=== PATIENT | female | born 1995 | race Caucasian/White ===

== ENCOUNTER 2020-07-29 11:11 | Emergency (ER) | payer OTHER ==
--- NOTE | 2020-07-29 11:13 | ERPHSYRPT ---
- History of Present Illness Time Seen by Provider: 07/29/20 11:13 Historian: patient Exam Limitations: no limitations Physician History: This is a 24-year-old white female who is approximately 13 weeks . She has had an ultrasound which confirms that she has a single intrauterine fetus. It was performed approximately 5 weeks ago. Patient states that she has had several week history of bilateral groin and lower quadrant discomfort that feels like a pulling sensation. She is also had a little cramping over her uterus. She has had no fevers. She does have intermittent nausea. She states that she does have some issues on occasion with constipation since she has been . She denies vaginal bleeding. She has had no recent vomiting. She is had no diarrhea. She states she had no fevers. She denies myalgias arthralgias. She has no cough, no chest pain and no shortness of breath. Activities at Onset: none Quality: other (Pulling, tightness bilateral lower quadrants and groin as well as cramping over her uterus) Abdominal Pain Onset Location: RLQ, LLQ, suprapubic Pain Radiation: no radiation Severity of Pain-Max: mild Severity of Pain-Current: mild Modifying Factors: Improves With: nothing Associated Symptoms: denies symptoms Previous symptoms: same symptoms as today Allergies/Adverse Reactions: ziprasidone HCl [From Geodon] Allergy (Mild, Verified 07/29/20 11:37) ziprasidone mesylate [From Geodon] Allergy (Mild, Verified 07/29/20 11:37) Home Medications: Alprazolam 1 mg [Xanax 1 mg] 1 mg PO 07/29/20 [History] Buprenorphine HCl/Naloxone HCl [Suboxone 2 mg-0.5 mg Tablet] 1 each SL 07/29/20 [History] Citalopram Hydrobromide 20 mg* [ceLEXa 20 MG] 20 mg PO DAILY 07/29/20 [History] Clonidine HCl 0.1 mg [Catapres 0.1 MG] 0.1 mg PO 07/29/20 [History] Hydroxyzine HCl 25 mg PO 07/29/20 [History] Hx Tetanus, Diphtheria Vaccination/Date Given: Yes Hx Influenza Vaccination/Date Given: No Hx Pneumococcal Vaccination/Date Given: No Travel Risk - International Travel Have you traveled outside of the country in past 3 weeks: No - Coronavirus Screening Are you exhibiting any of the following symptoms?: No Close contact with a COVID-19 positive Pt in past 14-21 Days: No - Review of Systems Constitutional: No Symptoms Eyes: No Symptoms Ears, Nose, & Throat: No Symptoms Respiratory: No Symptoms Cardiac: No Symptoms Abdominal/Gastrointestinal: Abdominal Pain (Described as a pulling and tightness bilateral lower quadrants and bilateral groins as well as tightness and spasm in over her uterus) Genitourinary Symptoms: No Symptoms Musculoskeletal: No Symptoms Skin: No Symptoms Neurological: No Symptoms Psychological: No Symptoms Endocrine: No Symptoms Hematologic/Lymphatic: No Symptoms Immunological/Allergic: No Symptoms All Other Systems: Reviewed and Negative - Past Medical History Pertinent Past Medical History: No Neurological History: No Pertinent History ENT History: No Pertinent History Cardiac History: No Pertinent History Respiratory History: No Pertinent History Endocrine Medical History: No Pertinent History Musculoskeletal History: No Pertinent History GI Medical History: No Pertinent History History: No Pertinent History Psycho-Social History: Other Female Reproductive Disorders: Other Other Medical History: ovarian cysts - Past Surgical History Past Surgical History: No Neuro Surgical History: No Pertinent History Cardiac: No Pertinent History Respiratory: No Pertinent History Gastrointestinal: No Pertinent History Genitourinary: No Pertinent History Musculoskeletal: No Pertinent History Female Surgical History: No Pertinent History - Social History Smoking Status: Never smoker Exposure to second hand smoke: Yes Drug Use: none Patient Lives Alone: No - Nursing Vital Signs Nursing Vital Signs: Initial Vital Signs Temperature 98.5 F 07/29/20 11:29 Pulse Rate 85 07/29/20 11:29 Respiratory Rate 18 07/29/20 11:29 Blood Pressure 134/85 07/29/20 11:29 O2 Sat by Pulse Oximetry 100 07/29/20 11:29 Pain Scale Pain Intensity 5 - Physical Exam General Appearance: no apparent distress, alert, anxiety Eye Exam: PERRL/EOMI, eyes nml inspection Ears, Nose, Throat Exam: normal ENT inspection, moist mucous membranes Neck Exam: normal inspection, non-tender, supple, full range of motion Respiratory Exam: normal breath sounds, lungs clear, airway intact, No chest tenderness, No respiratory distress Cardiovascular Exam: regular rate/rhythm, normal heart sounds, normal peripheral pulses Gastrointestinal/Abdomen Exam: soft, normal bowel sounds, tenderness, other Pelvic Exam: not done Rectal Exam: not done Back Exam: normal inspection, normal range of motion, No CVA tenderness, No vertebral tenderness Extremity Exam: normal inspection, normal range of motion, pelvis stable Neurologic Exam: alert, oriented x 3, cooperative, outside sales representative insurance II-XII nml as tested, normal mood/affect, nml cerebellar function, nml station & gait, sensation nml Skin Exam: normal color, warm, dry Lymphatic Exam: No adenopathy SpO2 Interpretation: normal O2 Delivery: Room Air - Course Nursing assessment & vital signs reviewed: Yes Ordered Tests: Active Orders 24 hr Category Date Time Status OB FOLLOW UP PER FETUS [US] Stat Exams 07/29/20 13:16 Completed UA W/RFX UR CULTURE Stat Lab 07/29/20 13:29 Ordered Lab/Rad Data: Laboratory Results 07/29/20 Range/Units 12:45 Urinalys Dipstick Clnc MAIN LAB Urine Color Cancelled Urine Appearance Cancelled Urine pH Cancelled Ur Specific [place] Cancelled Urine Protein Cancelled POC Urine Protein Conf NEGATIVE (Negative) Urine Ketones Cancelled Urine Blood Cancelled Urine Nitrite Cancelled Urine Bilirubin Cancelled Urine Urobilinogen Cancelled Ur Leukocyte Esterase Cancelled Urine Leukocytes NEGATIVE (NEGATIVE) Urine WBC (Auto) 0-2 (0-5) /HPF Urine RBC (Auto) NONE (0-2) /HPF U Epithel Cells (Auto) FEW (FEW) /HPF Urine Bacteria (Auto) NONE (NEGATIVE) /HPF Urine RBC NEGATIVE (0-5) [place]/ul U Non-Squamous Epi Cells Cancelled Urine Mucus (Auto) SLIGHT (NEGATIVE) /HPF Ur Culture Indicated? NO Urine Culture Reflexed Cancelled Urine Glucose NEGATIVE (NEGATIVE) mg/dL - Progress Progress: unchanged Progress Note: 07/29/20 13:47 Per office automation technician, no acute abnormalities present. Counseled pt/family regarding: lab results, diagnosis, need for follow-up, rad results - Departure Departure Disposition: Home Clinical Impression: Round ligament pain Condition: Stable Critical Care Time: No Additional Instructions: May use Tylenol for pain control. Follow-up with your command post craftsman for further management.
[2020-07-29 12:50] VITALS: PULSE 76; O2SAT 98
[2020-07-29 12:54] LABS: Appearance CLEAR (CLEAR); Bilirubin NEGATIVE (NEGATIVE); Dipstick done @ ? MAIN LAB; Glucose NEGATIVE (NEGATIVE); Ketones NEGATIVE (NEGATIVE); Nitrite NEGATIVE (NEGATIVE); Protein,Urine Dip NEGATIVE (Negative); RBC NEGATIVE Ery/ul (0-5); Specific Gravity 1.025 (1.005-1.025); Urobilinogen 0.2 mg/dL (0-1)
[2020-07-29 12:57] LABS: Epithelial Cells FEW /HPF (FEW); Mucus SLIGHT /HPF (NEGATIVE); WBC 0-2 /HPF (0-5)
--- NOTE | 2020-07-29 13:29 | XRAY ---
Indication: Pain. Two-dimensional transabdominal early OB ultrasound performed. Comparison: June 19, 2020. Again there is a single viable intrauterine with mean crown-rump length 8.07 cm corresponding to 14 weeks 0 days. heart rate 155 BPM. No abnormal subchorionic fluid. Left and right ovaries not visualized. No suspicious adnexal mass or free fluid. Impression: Again single viable intrauterine measuring 14 weeks 0 days. Normal progression of . No new/acute findings.
[2020-07-29 14:00] VITALS: BP 97/59
== END 2020-07-29 13:59 | disposition home or self-care (01) ==
LOC: ED 11:11
DX: R10.2 Pelvic and perineal pain (principal); O26.891 Other specified pregnancy related conditions, first trimester; Z3A.13 13 weeks gestation of pregnancy
CPT/HCPCS: 76816; 81015; 99283

== ENCOUNTER 2020-08-19 15:51 | Emergency (ER) | payer OTHER ==
--- NOTE | 2020-08-19 16:25 | ERPHSYRPT ---
- History of Present Illness Time Seen by Provider: 08/19/20 16:24 Source: patient Exam Limitations: no limitations Patient Subjective Stated Complaint: Pt states "I am 16 weeks and I have not felt my baby move in a week and i am spotting." Triage Nursing Assessment: PT presented alert and oriented X 3, skin pwd. Pt ambulates with an upright steady gait, able to speak in clear full sentences Physician History: This is a 25-year-old white female who is 16 weeks gestation and has a single intrauterine fetus per ultrasound from 3 weeks ago. In the last 4 days patient has noticed brownish old blood vaginal discharge with no odor. She also has not felt the fetus move in any fashion over the last week. Patient is taking Suboxone and Xanax. She has had no nausea vomiting or diarrhea. She has had no cough. She has had no chest pain. Timing/Duration: day(s) (4 days) Activites at Onset: none Quality: other (No pain) Pain Radiation: none Severity of Pain-Max: none Severity of Pain-Current: none Prior abdominal problems: none Sexual intercourse history: non-contributory Modifying Factors: Improves With: nothing Associated Symptoms: denies symptoms Allergies/Adverse Reactions: ziprasidone HCl [From Geodon] Allergy (Mild, Verified 07/29/20 11:37) ziprasidone mesylate [From Geodon] Allergy (Mild, Verified 07/29/20 11:37) Home Medications: Alprazolam 1 mg [Xanax 1 mg] 1 mg PO DAILY 07/29/20 [History] Buprenorphine HCl/Naloxone HCl [Suboxone 2 mg-0.5 mg Tablet] 1 each SL DAILY [History] Citalopram Hydrobromide 20 mg* [ceLEXa 20 MG] 20 mg PO DAILY 07/29/20 [History] Clonidine HCl 0.1 mg [Catapres 0.1 MG] 0.1 mg PO DAILY 07/29/20 [History] Hydroxyzine HCl 25 mg PO DAILY 07/29/20 [History] Hx Tetanus, Diphtheria Vaccination/Date Given: No Hx Influenza Vaccination/Date Given: No Hx Pneumococcal Vaccination/Date Given: No Travel Risk - International Travel Have you traveled outside of the country in past 3 weeks: No - Coronavirus Screening Are you exhibiting any of the following symptoms?: No Close contact with a COVID-19 positive Pt in past 14-21 Days: No - Review of Systems Constitutional: No Symptoms Eyes: No Symptoms Ears, Nose, & Throat: No Symptoms Respiratory: No Symptoms Cardiac: No Symptoms Abdominal/Gastrointestinal: No Symptoms Genitourinary Symptoms: Vaginal Bleeding Musculoskeletal: No Symptoms Skin: No Symptoms Neurological: No Symptoms Psychological: No Symptoms Endocrine: No Symptoms Hematologic/Lymphatic: No Symptoms Immunological/Allergic: No Symptoms All Other Systems: Reviewed and Negative - Past Medical History Pertinent Past Medical History: Yes Neurological History: No Pertinent History ENT History: No Pertinent History Cardiac History: No Pertinent History Respiratory History: No Pertinent History Endocrine Medical History: No Pertinent History Musculoskeletal History: No Pertinent History GI Medical History: No Pertinent History History: No Pertinent History Psycho-Social History: Other Female Reproductive Disorders: Other Other Medical History: ovarian cysts. personality disorder - Past Surgical History Past Surgical History: No Neuro Surgical History: No Pertinent History Cardiac: No Pertinent History Respiratory: No Pertinent History Gastrointestinal: No Pertinent History Genitourinary: No Pertinent History Musculoskeletal: No Pertinent History Female Surgical History: No Pertinent History - Social History Smoking Status: Current every day smoker How long have you smoked: years Exposure to second hand smoke: Yes Drug Use: none Patient Lives Alone: No - Female History Hx Now: Yes Expected Date of Delivery: 02/02/21 - Nursing Vital Signs Nursing Vital Signs: Initial Vital Signs Temperature 98.3 F 08/19/20 15:52 Pulse Rate 82 08/19/20 15:52 Respiratory Rate 20 08/19/20 15:52 Blood Pressure 120/74 08/19/20 15:52 O2 Sat by Pulse Oximetry 100 08/19/20 15:52 Pain Scale Pain Intensity 4 - Physical Exam General Appearance: no apparent distress, alert, anxiety Ears, Nose, Throat Exam: normal ENT inspection, moist mucous membranes Neck Exam: normal inspection, non-tender, supple, full range of motion Respiratory Exam: normal breath sounds, lungs clear, airway intact, No chest tenderness, No respiratory distress Cardiovascular Exam: regular rate/rhythm, normal heart sounds, normal peripheral pulses Gastrointestinal/Abdomen Exam: soft, normal bowel sounds, No tenderness, No guarding Pelvic Exam: not done Rectal Exam: not done Back Exam: normal inspection, normal range of motion, No CVA tenderness, No vertebral tenderness Extremity Exam: normal inspection, normal range of motion, pelvis stable Neurologic Exam: alert, oriented x 3, cooperative, personal computer specialist II-XII nml as tested, normal mood/affect, nml cerebellar function, nml station & gait, sensation nml Skin Exam: normal color, warm, dry Lymphatic Exam: No adenopathy SpO2 Interpretation: normal SpO2: 100 O2 Delivery: Room Air - Course Nursing assessment & vital signs reviewed: Yes Ordered Tests: Active Orders 24 hr Category Date Time Status Heart Tones-ED STAT Care 08/19/20 16:08 Active IV Insertion STAT Care 08/19/20 16:08 Active OB >14 WKS 1st GESTATION [US] Stat Exams 08/19/20 16:11 Completed CBC W DIFF Stat Lab 08/19/20 16:29 Completed HCG, Quantitative (Inhouse) Stat Lab 08/19/20 16:29 Received UA W/RFX UR CULTURE Stat Lab 08/19/20 16:12 Completed Transfer Order Routine Transfer 08/19/20 Ordered Medication Summary Discontinued Medications Generic Name Dose Route Start Last Admin Trade Name Edna PRN Reason Stop Dose Admin Sodium Chloride Confirm 08/19/20 17:11 Sodium Chloride 0.9% 1000 Ml Administered 08/19/20 17:12 Dose 1,000 mls @ ud .ROUTE .S.N. [employer] Lab/Rad Data: Laboratory Result Diagrams 08/19/20 16:29 Laboratory Results 08/19/20 08/19/20 Range/Units 16:29 16:12 WBC 11.0 H (4.0-10.5) K/mm3 RBC 3.01 L (4.1-5.4) M/mm3 Hgb 9.5 L (12.0-16.0) gm/dl Hct 27.5 L (35-47) % MCV 91.4 (78-100) fl MCH 31.6 (26-32) pg MCHC 34.5 (32-36) g/dl RDW 12.7 (11.5-14.0) % Plt Count 171 (150-450) K/mm3 MPV 10.9 (7.5-11.0) fl Gran % 69.6 H (36.0-66.0) % Eos # (Auto) 0.21 (0-0.5) Absolute Lymphs (auto) 2.45 (1.0-4.6) Absolute Monos (auto) 0.66 (0.0-1.3) Lymphocytes % 22.4 L (24.0-44.0) % Monocytes % 6.0 (0.0-12.0) % Eosinophils % 1.9 (0.00-5.0) % Basophils % 0.1 (0.0-0.4) % Absolute Granulocytes 7.63 H (1.4-6.9) Basophils # 0.01 (0-0.4) Urine Color YELLOW (YELLOW) Urine Appearance SLIGHTLY CLOUDY (CLEAR) Urine pH 5.0 (5-6) Ur Specific [place] 1.027 (1.005-1.025) Urine Protein NEGATIVE (Negative) Urine Ketones NEGATIVE (NEGATIVE) Urine Blood NEGATIVE (0-5) [place]/ul Urine Nitrite NEGATIVE (NEGATIVE) Urine Bilirubin NEGATIVE (NEGATIVE) Urine Urobilinogen 2 (0-1) mg/dL Ur Leukocyte Esterase TRACE (NEGATIVE) Urine WBC (Auto) 3-5 (0-5) /HPF Urine RBC (Auto) 0-2 (0-2) /HPF U Epithel Cells (Auto) RARE (FEW) /HPF Urine Bacteria (Auto) NONE (NEGATIVE) /HPF Urine Mucus (Auto) SLIGHT (NEGATIVE) /HPF Urine Culture Reflexed NO (NO) Urine Glucose NEGATIVE (NEGATIVE) mg/dL - Progress Progress: unchanged Air Movement: good Progress Note: 08/19/20 17:17 OB ultrasound greater than 14 weeks shows a single viable intrauterine . The posterior placenta shows a new retroplacental heterogeneous echogenic region up to 2 cm in thickness and 5 cm in length that is worrisome for abruption. Medical decision making: This patient is hemodynamically stable at this time. She has had 4 days of some small amount of brownish bloody discharge which she changes the pad approximately 4 times a day. She denies dizziness or syncopal episodes. I spoke with Dr. Delgado, her OB/primary care doctor and reviewed the patient's lab and ultrasound results. We will place the patient in observation under Dr. Delgado and repeat labs in the morning and have the patient have strict bedrest. Blood Culture(s) Obtained: No Antibiotics given: No Counseled pt/family regarding: lab results, diagnosis, rad results - Departure Departure Disposition: Observation Clinical Impression: Vaginal bleeding, Placental abnormality in second trimester Condition: Stable Critical Care Time: No Referrals: TREE DELGADO [Primary Care Provider] -
[2020-08-19 16:32] LABS: Absolute Neutrophil Ct (ANC) 7.63 (1.4-6.9); BASOPHIL % 0.1 % (0.0-0.4); Basophil (Absolute #) 0.01 (0-0.4); Eosinophil % 1.9 % (0.00-5.0); Eosinophil (Absolute #) 0.21 (0-0.5); Hematocrit 27.5 % (35-47); Hemoglobin 9.5 gm/dl (12.0-16.0); Lymphocyte (Absolute #) 2.45 (1.0-4.6); Lymphocytes % 22.4 % (24.0-44.0); Mean Cell Volume 91.4 fl (78-100); Mean Corpuscular Hemoglobin 31.6 pg (26-32); Mean Corpuscular Hgb Concent. 34.5 g/dl (32-36); Mean Platelet Volume 10.9 fl (7.5-11.0); Monocyte (Absolute #) 0.66 (0.0-1.3); Neutrophil % 69.6 % (36.0-66.0); Platelet Count 171 K/mm3 (150-450); Red Blood Count 3.01 M/mm3 (4.1-5.4); Red Cell Distribution Width 12.7 % (11.5-14.0)
[2020-08-19 16:34] LABS: Appearance SLIGHTLY CLOUDY (CLEAR); Bilirubin NEGATIVE (NEGATIVE); Blood NEGATIVE Ery/ul (0-5); Epithelial Cells RARE /HPF (FEW); Glucose NEGATIVE (NEGATIVE); Ketones NEGATIVE (NEGATIVE); Leukocyte Esterase TRACE (NEGATIVE); Mucus SLIGHT /HPF (NEGATIVE); Nitrite NEGATIVE (NEGATIVE); Protein,Urine Dip NEGATIVE (Negative); RBC 0-2 /HPF (0-2); Specific Gravity 1.027 (1.005-1.025); Urobilinogen 2 mg/dL (0-1)
--- NOTE | 2020-08-19 17:06 | XRAY ---
Indication: Pain and bleeding 4 days. Limited OB ultrasound performed. Comparison: July 29, 2020. Again single viable intrauterine currently in cephalic presentation with heart rate 150 BPM. Posterior placenta with new retroplacental heterogeneous echogenicity up to 2 cm in thickness and at least 5 cm in length with color Doppler flow worrisome for abruption. Comment: Preliminary report was given.
[2020-08-19] MEDS ORDERED: Sodium Chloride 0.9% 1000 ML 1,000 ML ONE (17:11)
[2020-08-19] MEDS ORDERED: Zofran 4 MG/2 ML VIAL IV PRN (18:32)
[2020-08-19] MEDS ORDERED: TYLENOL 325 MG PO PRN (18:32)
[2020-08-19] MEDS: Sodium Chloride 0.9% 1000 ML 1,000 ML IV SCH (18:57)
[2020-08-20] MEDS: Sodium Chloride 0.9% 1000 ML 1,000 ML IV SCH (02:30)
[2020-08-20 05:28] LABS: Absolute Neutrophil Ct (ANC) 5.34 (1.4-6.9); BASOPHIL % 0.1 % (0.0-0.4); Basophil (Absolute #) 0.01 (0-0.4); Eosinophil % 2.3 % (0.00-5.0); Eosinophil (Absolute #) 0.19 (0-0.5); Hematocrit 27.5 % (35-47); Hemoglobin 9.4 gm/dl (12.0-16.0); Lymphocytes % 26.2 % (24.0-44.0); Mean Cell Volume 92.3 fl (78-100); Mean Corpuscular Hemoglobin 31.5 pg (26-32); Mean Corpuscular Hgb Concent. 34.2 g/dl (32-36); Mean Platelet Volume 11.3 fl (7.5-11.0); Monocyte (Absolute #) 0.66 (0.0-1.3); Monocytes % 7.9 % (0.0-12.0); Neutrophil % 63.5 % (36.0-66.0); Platelet Count 177 K/mm3 (150-450); Red Blood Count 2.98 M/mm3 (4.1-5.4); White Blood Count 8.4 K/mm3 (4.0-10.5)
[2020-08-20] MEDS ORDERED: MEDICATION INTERVENTION PO SCH (07:15)
[2020-08-20 07:48] VITALS: BP 84/46; PULSE 85; O2SAT 96
--- NOTE | 2020-08-20 08:58 | PCM.SSS ---
History of Present Illness - Chief Complaint Chief Complaint: Vaginal bleeding History of Present Illness: is a 25 year old female pt of mine, 16 wks , who sees Dr. Shelton for hx opiate abuse and was admitted through ER with vaginal bleeding, cramping, and concern for placental abruption. She had an ultrasound in the ER that showed 2x5cm retroplacental area concerning for abruption. Cervical length reported to be > 4 cm. Overnight her cramping and bleeding are nearly resolved. Dr. Shah, OB, saw her this morning, thank you. He advised that she needs to be on bed rest and will f/u with me in office. She can discharge to home today. Dr. Shah also had the following recommendations: Stop smoking. Discontinue xanax. Subutex in place of suboxone due to . - Review of Systems Eyes: Vision Changes (sees spots sometimes when she stands up, sometimes at other times) Cardiac: Palpitations (started clonidine for palpitations) Abdominal/Gastrointestinal: Abdominal Pain Genitourinary Symptoms: Vaginal Bleeding Neurological: Dizziness Psychological: Anxiety (has been stressed) All Other Systems: Reviewed and Negative Medications & Allergies Home Medications: Home Medication List Alprazolam 1 mg [Xanax 1 mg] 1 mg PO DAILY 07/29/20 [History Confirmed 08/19/20] Buprenorphine HCl/Naloxone HCl [Suboxone 2 mg-0.5 mg Tablet] 0.5 each SL BID 07/29/20 [History Confirmed 08/19/20] Citalopram Hydrobromide 20 mg* [ceLEXa 20 MG] 20 mg PO DAILY 07/29/20 [History Confirmed 08/19/20] Clonidine HCl 0.1 mg [Catapres 0.1 MG] 0.1 mg PO DAILY 07/29/20 [History Confirmed 08/19/20] Hydroxyzine HCl 25 mg PO DAILY 07/29/20 [History Confirmed 08/19/20] Allergies/Adverse Reactions: Allergies Allergy/AdvReac Type Severity Reaction Status Date / Time ziprasidone HCl [From Geodon] Allergy Mild Verified 07/29/20 11:37 ziprasidone mesylate Allergy Mild Verified 07/29/20 11:37 [From Geodon] - Past Medical History Past Medical History: Yes Neurological History: No Pertinent History ENT History: No Pertinent History Cardiac History: Other Respiratory History: No Pertinent History Endocrine Medical History: No Pertinent History Musculoskelatal History: Fractures GI Medical History: No Pertinent History History: No Pertinent History Pyscho-Social History: Other Reproductive Disorders: Other Comment: ovarian cysts. personality disorder - Female History Are you now?: Yes Expected Date of Delivery: 02/02/21 - Past Surgical History Past Surgical History: No Neuro Surgical History: No Pertinent History Cardiac History: No Pertinent History Respiratory Surgery: No Pertinent History GI Surgical History: No Pertinent History Genitourinary Surgical Hx: No Pertinent History Musculskeletal Surgical Hx: No Pertinent History Female Surgical History: No Pertinent History - Social History Smoking Status: Current every day smoker How long have you smoked: years Exposure to second hand smoke: Yes Alcohol: None Drug Use: none - Physical Exam Vital Signs: Vital Signs - 24 hr Temp Pulse Resp BP Pulse Ox 08/20/20 07:48 98.3 F 85 16 84/46 96 08/20/20 04:00 98.6 F 82 16 96/51 97 08/20/20 00:00 98.6 F 83 20 83/43 97 08/19/20 20:00 98.2 F 85 16 110/55 100 08/19/20 19:05 98 08/19/20 18:32 100 08/19/20 17:36 100 08/19/20 17:05 83 18 108/63 99 08/19/20 16:53 98.3 F 82 20 119/74 97 08/19/20 15:52 98.3 F 82 20 120/74 100 General Appearance: no apparent distress, alert Neurologic Exam: oriented x 3, cooperative Eye Exam: eyes nml inspection Ears, Nose, Throat Exam: moist mucous membranes Neck Exam: normal inspection Respiratory Exam: normal breath sounds, lungs clear, No crackles/rales, No rhonchi, No wheezing Cardiovascular Exam: regular rate/rhythm, normal heart sounds, No murmur Gastrointestinal/Abdomen Exam: soft, normal bowel sounds, other (fundus palpable inferior to umbilicus), No tenderness, No distention Back Exam: normal inspection, No CVA tenderness, No rash Extremity Exam: normal inspection, No pedal edema, No swelling Skin Exam: normal color, warm, dry, No rash Results - Labs Lab/Micro Results: Lab Results-Last 24 Hours 08/19/20 08/19/20 08/19/20 Range/Units 16:12 16:29 16:29 WBC 11.0 H (4.0-10.5) K/mm3 RBC 3.01 L (4.1-5.4) M/mm3 Hgb 9.5 L (12.0-16.0) gm/dl Hct 27.5 L (35-47) % MCV 91.4 (78-100) fl MCH 31.6 (26-32) pg MCHC 34.5 (32-36) g/dl RDW 12.7 (11.5-14.0) % Plt Count 171 (150-450) K/mm3 MPV 10.9 (7.5-11.0) fl Gran % 69.6 H (36.0-66.0) % Eos # (Auto) 0.21 (0-0.5) Absolute Lymphs (auto) 2.45 (1.0-4.6) Absolute Monos (auto) 0.66 (0.0-1.3) Lymphocytes % 22.4 L (24.0-44.0) % Monocytes % 6.0 (0.0-12.0) % Eosinophils % 1.9 (0.00-5.0) % Basophils % 0.1 (0.0-0.4) % Absolute Granulocytes 7.63 H (1.4-6.9) Basophils # 0.01 (0-0.4) Beta HCG, Quant 47605 mIU/ml Urine Color YELLOW (YELLOW) Urine Appearance SLIGHTLY CLOUDY (CLEAR) Urine pH 5.0 (5-6) Ur Specific [place] 1.027 (1.005-1.025) Urine Protein NEGATIVE (Negative) Urine Ketones NEGATIVE (NEGATIVE) Urine Blood NEGATIVE (0-5) Carlos/ul Urine Nitrite NEGATIVE (NEGATIVE) Urine Bilirubin NEGATIVE (NEGATIVE) Urine Urobilinogen 2 (0-1) mg/dL Ur Leukocyte Esterase TRACE (NEGATIVE) Urine WBC (Auto) 3-5 (0-5) /HPF Urine RBC (Auto) 0-2 (0-2) /HPF U Epithel Cells (Auto) RARE (FEW) /HPF Urine Bacteria (Auto) NONE (NEGATIVE) /HPF Urine Mucus (Auto) SLIGHT (NEGATIVE) /HPF Urine Culture Reflexed NO (NO) Urine Glucose NEGATIVE (NEGATIVE) mg/dL 08/20/20 Range/Units 04:22 WBC 8.4 (4.0-10.5) K/mm3 RBC 2.98 L (4.1-5.4) M/mm3 Hgb 9.4 L (12.0-16.0) gm/dl Hct 27.5 L (35-47) % MCV 92.3 (78-100) fl MCH 31.5 (26-32) pg MCHC 34.2 (32-36) g/dl RDW 13.0 (11.5-14.0) % Plt Count 177 (150-450) K/mm3 MPV 11.3 H (7.5-11.0) fl Gran % 63.5 (36.0-66.0) % Eos # (Auto) 0.19 (0-0.5) Absolute Lymphs (auto) 2.20 (1.0-4.6) Absolute Monos (auto) 0.66 (0.0-1.3) Lymphocytes % 26.2 (24.0-44.0) % Monocytes % 7.9 (0.0-12.0) % Eosinophils % 2.3 (0.00-5.0) % Basophils % 0.1 (0.0-0.4) % Absolute Granulocytes 5.34 (1.4-6.9) Basophils # 0.01 (0-0.4) Beta HCG, Quant mIU/ml Urine Color (YELLOW) Urine Appearance (CLEAR) Urine pH (5-6) Ur Specific [place] (1.005-1.025) Urine Protein (Negative) Urine Ketones (NEGATIVE) Urine Blood (0-5) Carlos/ul Urine Nitrite (NEGATIVE) Urine Bilirubin (NEGATIVE) Urine Urobilinogen (0-1) mg/dL Ur Leukocyte Esterase (NEGATIVE) Urine WBC (Auto) (0-5) /HPF Urine RBC (Auto) (0-2) /HPF U Epithel Cells (Auto) (FEW) /HPF Urine Bacteria (Auto) (NEGATIVE) /HPF Urine Mucus (Auto) (NEGATIVE) /HPF Urine Culture Reflexed (NO) Urine Glucose (NEGATIVE) mg/dL - Radiology Impressions Radiology Exams & Impressions: Radiology Procedures Category Date Time Status OB >14 WKS 1st GESTATION [US] Stat Exams 08/19/20 16:11 Completed Assessment/Plan (1) Placental abnormality in second trimester Current Visit: Yes Status: Acute Assessment & Plan: Going home today on pelvic rest. F/u with me in 1 week. Will recheck u/s in [address] Shah recommends: Stop smoking Stop xanax Start subutex in place of suboxone. Code(s): O43.102 - MALFORMATION OF PLACENTA, UNSPECIFIED, SECOND TRIMESTER (2) Vaginal bleeding Current Visit: Yes Status: Resolved Code(s): N93.9 - ABNORMAL UTERINE AND VAGINAL BLEEDING, UNSPECIFIED (3) Threatened miscarriage Current Visit: Yes Status: Acute Code(s): O20.0 - THREATENED (4) Constipation Current Visit: Yes Status: Chronic Qualifiers: Constipation type: slow transit constipation Qualified Code(s): K59.01 - Slow transit constipation Assessment & Plan: OK to try colace and/or miralax. Code(s): K59.00 - CONSTIPATION, UNSPECIFIED Hospital Summary - Hospital Course Hospital Course: is a 25 year old female pt of mine, 16 wks , who sees Dr. Shelton for hx opiate abuse and was admitted through ER with vaginal bleeding, cramping, and concern for placental abruption. She had an ultrasound in the ER that showed 2x5cm retroplacental area concerning for abruption. Cervical length reported to be > 4 cm. Overnight her cramping and bleeding are nearly resolved. Dr. Shah, OB, saw her this morning, thank you. He advised that she needs to be on bed rest and will f/u with me in office. She can discharge to home today. Dr. Shah also had the following recommendations: Stop smoking. Discontinue xanax. Subutex in place of suboxone due to . - Vitals & Intake/Output Vital Signs: Vital Signs Temperature 98.3 F 08/20/20 07:48 Pulse Rate 85 08/20/20 07:48 Respiratory Rate 16 08/20/20 07:48 Blood Pressure 84/46 08/20/20 07:48 O2 Sat by Pulse Oximetry 96 08/20/20 07:48 Intake & Output: Intake & Output 08/17/20 08/18/20 08/19/20 08/20/20 11:59 11:59 11:59 11:59 Intake Total 2090 Balance 2090 Weight 69 kg - Lab Result Diagrams: 08/20/20 04:22 Lab Results-Last 24 Hrs: Lab Results-Last 24 Hours 08/19/20 08/19/20 08/19/20 Range/Units 16:12 16:29 16:29 WBC 11.0 H (4.0-10.5) K/mm3 RBC 3.01 L (4.1-5.4) M/mm3 Hgb 9.5 L (12.0-16.0) gm/dl Hct 27.5 L (35-47) % MCV 91.4 (78-100) fl MCH 31.6 (26-32) pg MCHC 34.5 (32-36) g/dl RDW 12.7 (11.5-14.0) % Plt Count 171 (150-450) K/mm3 MPV 10.9 (7.5-11.0) fl Gran % 69.6 H (36.0-66.0) % Eos # (Auto) 0.21 (0-0.5) Absolute Lymphs (auto) 2.45 (1.0-4.6) Absolute Monos (auto) 0.66 (0.0-1.3) Lymphocytes % 22.4 L (24.0-44.0) % Monocytes % 6.0 (0.0-12.0) % Eosinophils % 1.9 (0.00-5.0) % Basophils % 0.1 (0.0-0.4) % Absolute Granulocytes 7.63 H (1.4-6.9) Basophils # 0.01 (0-0.4) Beta HCG, Quant 72691 mIU/ml Urine Color YELLOW (YELLOW) Urine Appearance SLIGHTLY CLOUDY (CLEAR) Urine pH 5.0 (5-6) Ur Specific [place] 1.027 (1.005-1.025) Urine Protein NEGATIVE (Negative) Urine Ketones NEGATIVE (NEGATIVE) Urine Blood NEGATIVE (0-5) Carlos/ul Urine Nitrite NEGATIVE (NEGATIVE) Urine Bilirubin NEGATIVE (NEGATIVE) Urine Urobilinogen 2 (0-1) mg/dL Ur Leukocyte Esterase TRACE (NEGATIVE) Urine WBC (Auto) 3-5 (0-5) /HPF Urine RBC (Auto) 0-2 (0-2) /HPF U Epithel Cells (Auto) RARE (FEW) /HPF Urine Bacteria (Auto) NONE (NEGATIVE) /HPF Urine Mucus (Auto) SLIGHT (NEGATIVE) /HPF Urine Culture Reflexed NO (NO) Urine Glucose NEGATIVE (NEGATIVE) mg/dL 08/20/20 Range/Units 04:22 WBC 8.4 (4.0-10.5) K/mm3 RBC 2.98 L (4.1-5.4) M/mm3 Hgb 9.4 L (12.0-16.0) gm/dl Hct 27.5 L (35-47) % MCV 92.3 (78-100) fl MCH 31.5 (26-32) pg MCHC 34.2 (32-36) g/dl RDW 13.0 (11.5-14.0) % Plt Count 177 (150-450) K/mm3 MPV 11.3 H (7.5-11.0) fl Gran % 63.5 (36.0-66.0) % Eos # (Auto) 0.19 (0-0.5) Absolute Lymphs (auto) 2.20 (1.0-4.6) Absolute Monos (auto) 0.66 (0.0-1.3) Lymphocytes % 26.2 (24.0-44.0) % Monocytes % 7.9 (0.0-12.0) % Eosinophils % 2.3 (0.00-5.0) % Basophils % 0.1 (0.0-0.4) % Absolute Granulocytes 5.34 (1.4-6.9) Basophils # 0.01 (0-0.4) Beta HCG, Quant mIU/ml Urine Color (YELLOW) Urine Appearance (CLEAR) Urine pH (5-6) Ur Specific [place] (1.005-1.025) Urine Protein (Negative) Urine Ketones (NEGATIVE) Urine Blood (0-5) Carlos/ul Urine Nitrite (NEGATIVE) Urine Bilirubin (NEGATIVE) Urine Urobilinogen (0-1) mg/dL Ur Leukocyte Esterase (NEGATIVE) Urine WBC (Auto) (0-5) /HPF Urine RBC (Auto) (0-2) /HPF U Epithel Cells (Auto) (FEW) /HPF Urine Bacteria (Auto) (NEGATIVE) /HPF Urine Mucus (Auto) (NEGATIVE) /HPF Urine Culture Reflexed (NO) Urine Glucose (NEGATIVE) mg/dL - Radiology Exams Ordered Rad Exams-Entire Visit: Radiology Procedures Category Date Time Status OB >14 WKS 1st GESTATION [US] Stat Exams 08/19/20 16:11 Completed - Discharge Disposition: Home, Self-Care Condition: Good Prescriptions: Continue Citalopram Hydrobromide 20 mg* [ceLEXa 20 MG] 20 mg PO DAILY Hydroxyzine HCl 25 mg PO DAILY Clonidine HCl 0.1 mg [Catapres 0.1 MG] 0.1 mg PO DAILY Buprenorphine HCl/Naloxone HCl [Suboxone 2 mg-0.5 mg Tablet] 0.5 each SL BID Alprazolam 1 mg [Xanax 1 mg] 1 mg PO DAILY Additional Instructions: Dr. Shah has advised you to: Quit smoking - you can quit "cold turkey." Stop the xanax - you will need to wean off of this - Dr. Shelton can help you. Do not stop it suddenly. Start Subutex instead of suboxone - Dr. Shelton will need to do this. Follow up with: TREE CHAN [Primary Care Provider] -
[2020-08-20 09:59] LABS: T4 (Thyroxine) 17.9 ug/dL (5.53-10.96); TSH, 3RD Generation 0.255 mIU/L (0.47-4.68)
[2020-08-20] MEDS ORDERED: ATARAX 25 MG PO SCH (10:00)
[2020-08-20] MEDS ORDERED: NALOXONE HCL SL SCH (10:00)
[2020-08-20] MEDS ORDERED: XANAX 1 MG PO SCH (10:00)
[2020-08-20] MEDS ORDERED: ceLEXa 20 MG PO SCH (10:00)
[2020-08-20] MEDS ORDERED: Catapres 0.1 MG PO SCH (10:00)
[2020-08-20] MEDS ORDERED: BUPRENORPHINE HCL SL SCH (10:00)
[2020-08-20] MEDS ORDERED: [UNRECOGNIZED DRUG - OTHER] SL SCH (10:00)
[2020-08-20 10:47] LABS: Amphetamine,Urine POSITIVE (NEGATIVE); Barbiturate,Urine NEGATIVE (NEGATIVE); Benzodiazepine,Urine POSITIVE (NEGATIVE); Cocaine,Urine NEGATIVE (NEGATIVE); Methadone,Urine NEGATIVE (NEGATIVE); Opiate,Urine NEGATIVE (NEGATIVE); PCP,Urine NEGATIVE (NEGATIVE); THC,Urine NEGATIVE (NEGATIVE)
== END 2020-08-20 11:17 | disposition home or self-care (01) ==
LOC: ED 15:51 → MED SURG 18:13
PROVIDERS: ADMIT Family Medicine; ATTEND Family Medicine
DX: O43.102 Malformation of placenta, unspecified, second trimester (principal); Z3A.16 16 weeks gestation of pregnancy; O20.0 Threatened abortion; K59.01 Slow transit constipation; Z79.899 Other long term (current) drug therapy; F11.11 Opioid abuse, in remission
CPT/HCPCS: 36000; 36415; 76805; 80307; 81001; 84436; 84439; 84443; 84702; 85025; 93268; 94760; 99225; 99285; G0378; A9270-GY

== ENCOUNTER 2020-12-26 13:59 | Observation (INO) | payer OTHER ==
[2020-12-26 15:32] LABS: Amphetamine,Urine NEGATIVE (NEGATIVE); Barbiturate,Urine NEGATIVE (NEGATIVE); Benzodiazepine,Urine POSITIVE (NEGATIVE); Cocaine,Urine NEGATIVE (NEGATIVE); Methadone,Urine NEGATIVE (NEGATIVE); Opiate,Urine NEGATIVE (NEGATIVE); PCP,Urine NEGATIVE (NEGATIVE); THC,Urine NEGATIVE (NEGATIVE)
[2020-12-26 15:42] VITALS: O2SAT 98
[2020-12-26 16:10] LABS: Appearance CLOUDY (CLEAR); Bacteria RARE /HPF (NEGATIVE); Bilirubin NEGATIVE (NEGATIVE); Blood NEGATIVE Ery/ul (0-5); Epithelial Cells MODERATE /HPF (FEW); Glucose NEGATIVE (NEGATIVE); Ketones NEGATIVE (NEGATIVE); Leukocyte Esterase SMALL (NEGATIVE); Mucus SLIGHT /HPF (NEGATIVE); Nitrite NEGATIVE (NEGATIVE); Protein,Urine Dip 30 (Negative); RBC 0-2 /HPF (0-2); Specific Gravity 1.016 (1.005-1.025); Urobilinogen NEGATIVE mg/dL (0-1)
[2020-12-26 17:31] VITALS: BP 104/56; PULSE 96
== END 2020-12-26 16:40 | disposition home or self-care (01) ==
LOC: OB 13:59
PROVIDERS: ADMIT Family Medicine; ATTEND Family Medicine
DX: Z34.83 Encounter for supervision of other normal pregnancy, third trimester (principal); Z3A.34 34 weeks gestation of pregnancy
CPT/HCPCS: 80307; 81001; G0378